=== PATIENT | male | born 1985 | race Caucasian/White ===

== ENCOUNTER 2017-03-31 18:05 | Emergency (ER) | payer SELFPAY ==
[~2017-03-31] VITALS: Ht 177.8 cm; Wt 102.5 kg
[2017-03-31 18:15] VITALS: Ht 177.8 cm; Wt 102.5 kg
== END 2017-03-31 20:53 | disposition left against medical advice (07) ==
LOC: FTE 18:05
DX: Z53.21 Procedure and treatment not carried out due to patient leaving prior to being seen by health care provider (principal)